=== PATIENT | male | born 1935 | race Caucasian/White ===

== ENCOUNTER 2016-09-20 10:25 | Emergency (ER) | payer OTHER ==
[2016-09-20] MEDS ORDERED: HYDROMORPHONE HCL 1 MG/ML SYRINGE ONE (11:40)
[2016-09-20] MEDS ORDERED: CEPHALEXIN 500 MG CAPSULE ONE (11:40)
[2016-09-20] MEDS ORDERED: KETOROLAC TROMETHAMINE 30 MG/ML 1 ML VIAL ONE (11:40)
== END 2016-09-20 12:43 | disposition home or self-care (01) ==
LOC: ED 10:25
DX: L03.317 Cellulitis of buttock (principal); K64.9 Unspecified hemorrhoids; J44.9 Chronic obstructive pulmonary disease, unspecified; E11.9 Type 2 diabetes mellitus without complications; Z79.4 Long term (current) use of insulin
CPT/HCPCS: 99283 ×2; 96372; J1170; A9270; J1885